=== PATIENT | male | born 1980 | race Caucasian/White ===

== ENCOUNTER 2016-10-13 10:05 | Emergency (ER) | payer MEDICAID | END 2016-10-13 11:35 | disposition home or self-care (01) | LOC: D.ER 10:05 | DX: G89.18 Other acute postprocedural pain (principal) ==

== ENCOUNTER 2016-10-20 08:56 | Emergency (ER) | payer MEDICAID | END 2016-10-20 10:34 | disposition home or self-care (01) | LOC: D.ER 08:56 | DX: G89.18 Other acute postprocedural pain (principal); T81.4XXA Infection following a procedure, initial encounter; B99.8 Other infectious disease ==

== ENCOUNTER 2016-10-23 20:23 | Emergency (ER) | payer MEDICAID | END 2016-10-24 02:33 | disposition home or self-care (01) | LOC: D.ER 20:23 | DX: R51 Headache (principal) ==

== ENCOUNTER 2016-10-29 13:37 | Emergency (ER) | payer MEDICAID ==
[2016-10-29 15:38] LABS: BASOPHILS 0.2 % (0.0-2.0); EOSINOPHILS 2.3 % (0-7); HEMATOCRIT 43.9 % (42.0-54.0); HEMOGLOBIN 15.1 g/dL (13.5-17.5); IMMATURE GRANULOCYTES 0.2 % (0-5); MCH 31.3 pg (26.0-34.0); MCHC 34.4 g/dL (31.0-37.0); MCV 90.9 fL (80.0-100.0); MEAN PLATELET VOLUME 9.1 fL (7.4-10.4); MONOCYTES 6.9 % (2-11); NEUTROPHILS 64.4 % (40-80); PLATELET COUNT 323 10x3/uL (130-400); RBC 4.83 10x6/uL (4.20-6.10); RDW 12.7 % (11.5-14.5); WBC 6.6 10x3/uL (4.8-10.8)
[2016-10-29 16:15] LABS: CALC OSMOLALITY 282 mosm/kg (275-300); CALCIUM 8.6 mg/dL (8.5-10.1); CHLORIDE - SERUM 105 mmol/L (98-107); CREATININE - SERUM 1.1 mg/dL (0.6-1.3); GLUCOSE 116 mg/dL (74-106); POTASSIUM - SERUM 4.5 mmol/L (3.5-5.1); SODIUM 141 mmol/L (136-145); UREA NITROGEN 14 mg/dL (7-18); eGFR NON AFRICAN AMERICAN 81 mL/min (90-120)
== END 2016-10-29 18:25 | disposition home or self-care (01) ==
LOC: D.ER 13:37
PROVIDERS: Nurse Practitioner Acute Care
DX: J34.0 Abscess, furuncle and carbuncle of nose (principal); G89.18 Other acute postprocedural pain